=== PATIENT | male | born 1965 | race Two or more races ===

== ENCOUNTER 2016-06-12 03:40 | Emergency (ER) | payer SELFPAY ==
[~2016-06-12] VITALS: Ht 160 cm; Wt 86.2 kg
[2016-06-12 04:41] LABS: Basophils # (auto) 0 uL; Basophils % (auto) 0.4 % (0.0-2.0); Eosinophils # (auto) 0.3 uL; Eosinophils % (auto) 5.1 % (0.0-7.0); Hematocrit 48.6 % (41.0-53.0); Hemoglobin 16.5 g/dL (13.5-17.5); Lymphocytes # (auto) 1.4 uL; Lymphocytes % (auto) 24.3 % (10.0-50.0); Mean Corpuscular Hemoglobin 31.3 pg (28.0-32.0); Mean Corpuscular Hgb Conc. 33.9 g/dL (32.0-36.0); Mean Corpuscular Volume 92.3 fL (80.0-100.0); Mean Platelet Volume 8.8 fL (7.4-10.4); Monocytes # (auto) 0.4 uL; Monocytes % (auto) 6.2 % (0.0-12.0); Neutrophils # (auto) 3.8 uL; Platelet Count (auto) 135 10^3/uL (140-450); White Blood Cell 5.9 10^3/uL (4.4-10.8)
[2016-06-12 04:59] LABS: Albumin 3.7 g/dL (3.4-5.0); BUN/Creatinine Ratio 18.4; Calcium 7.8 mg/dL (8.5-10.1); Magnesium 2.3 mg/dL (1.6-2.6); Potassium 3.7 mmol/L (3.5-5.1)
[2016-06-12 05:02] LABS: Bilirubin, Total 0.4 mg/dL (0.2-1.0); Total Protein 7.2 g/dL (6.4-8.2)
[2016-06-12 10:23] VITALS: BP 138/63
[2016-06-12] MEDS ORDERED: DOCUSATE SOD 100 MG CAP PO ONE (11:30)
== END 2016-06-12 11:45 | disposition home or self-care (01) ==
LOC: ER 03:45
DX: K59.00 Constipation, unspecified (principal)
CPT/HCPCS: 36415; 74176; 80053; 81002; 83690; 83735; 84484; 85025; 93005; 94761